=== PATIENT | female | born 2000 | race Caucasian/White ===

== ENCOUNTER 2021-05-20 21:57 | Emergency (ER) | payer BC, SELFPAY ==
--- NOTE | ~2021-05-20 | CT_ITS ---
EXAMINATION: CT abdomen pelvis w con DATE: 05/21/2021 00:57 INDICATION: Right-sided abdominal pain TECHNIQUE: Computed tomography (CT) of the abdomen and pelvis was performed with 100 cc Omnipaque 350 intravenous contrast. The dose-length product was 442.65 mGy-cm. Automated exposure control and iter ative reconstruction technique were employed. COMPARISON: None. FINDINGS: Lung bases are unremarkable. No significant pleural or pericardial effusion. Heart size nor mal. No significant vascular abnormality. No lymphadenopathy. No free air or free fluid. There is sub tle heterogeneous enhancement of the kidneys. Cannot exclude pyelonephritis. No hydronephrosis. Gallb ladder is present. The liver, spleen, pancreas, adrenal glands are unremarkable. There is a 2.8 x 2 cm left adnexal cyst , likely ovarian. No acute osseous abnormality. IMPRESSION: 1. Subtle heterogeneous enhancement of the kidneys. This may represent normal variant, although pyelo nephritis is not excluded. Clinically correlate. 2: Left adnexal cyst measuring 2.8 x 2 cm, likely ovarian. Consider correlation with ultrasound. Reviewed, dictated and finalized at location B. [employer] IMPRESSION: 1. Subtle heterogeneous enhancement of the kidneys. This may represent normal v ariant, although pyelonephritis is not excluded. Clinically correlate. 2: Left adnexal cyst measuring 2.8 x 2 cm, likely ovarian. Consider correlation with ultrasound.
[2021-05-20 22:05] VITALS: BP 131/83; PULSE 90; RESP 20; TEMP 37; O2SAT 99
[2021-05-20] MEDS: SODIUM CHLORIDE 0.9% IV 1,000 ML 999 ML IV CONT (23:55)
[2021-05-20] MEDS: MORPHINE SULFATE (*CRX) 4 MG/ML INJ IV PUSH (23:56)
[2021-05-20] MEDS: ONDANSETRON INJ 4 MG/2 ML VIAL IV PUSH (23:56)
[2021-05-21 00:07] LABS: Basophils Absolute Auto 0.1 K/mm3 (0.0-0.1); Basophils Percent Auto 0.8 % (0.2-1.2); Eosinophils Absolute Auto 0.1 K/mm3 (0-0.3); Eosinophils Percent Auto 0.9 % (0-4.4); Hematocrit 37.4 % (37.0-47.0); Hemoglobin 12.7 g/dL (12.0-15.0); Immature Granulocyte Absolute 0.05 K/mm3 (0.00-0.031); Immature Granulocyte Percent A 0.5 % (0-0.5); Lymphocytes Percent Auto 19.5 % (18.3-44.2); Mean Corpuscular Hemoglobin 28.8 pg (26-34); Mean Corpuscular Volume 84.8 fl (80-100); Mean Platelet Volume 10.1 fl (7.4-10.4); Monocytes Absolute Auto 0.7 K/mm3 (0.1-0.6); Monocytes Percent Auto 7.3 % (2.6-8.5); Neutrophils Absolute Auto 6.5 K/mm3 (1.3-6.7); Platelet Count Result 333 k/mm3 (150-375); Red Blood Count 4.41 M/mm3 (4.2-5.4); Red Cell Distribution Width 13.7 % (11.5-14.5); White Blood Count 9.2 K/mm3 (4.5-10.0)
--- NOTE | 2021-05-21 00:19 | ED.GENADULT ---
HPI - General Adult General Chief complaint: Abdominal Pain Stated complaint: Right abd pain Time Seen by Provider: 05/20/21 23:23 History of Present Illness HPI narrative: Patient 20-year-old female who presents to the emergency department with chief complaint of right-sided abdominal pain. Patient states that it is both in the right upper quadrant and right lower quadrant the patient states the pain is not improved by anything reports is worsened by movement and palpation patient reports she had some nausea with this and denies fever. The patient denies diarrhea reports that she has been continually having some light bleeding since she started oral contraceptives. Patient denies surgical history of the abdomen Related Data Allergies Allergy/AdvReac Type Severity Reaction Status Date / Time Penicillins Allergy Rash Verified 05/20/21 22:09 Review of Systems Review of Systems: A 10 system review of systems was completed on the patient and is negative except for what is stated in the HPI. Nursing and ancillary documentation was reviewed. Exam Narrative: GENERAL: Well-appearing, well-nourished, and in no acute distress. HEAD: Normocephalic, atraumatic. EYES: PERRLA and EOMI. ENT: Nares clear, no rhinorrhea or epistaxis. Mucous membranes moist. NECK: Supple. CHEST: Clear to auscultation. No respiratory distress. HEART: Regular rate and rhythm. No murmur heard. Normal peripheral pulses. ABDOMEN: Soft, tenderness to palpation the right upper quadrant and right lower quadrant, nondistended, normal active bowel sounds. EXTREMITIES: Normal range of motion. No edema. SKIN: Warm, dry, no rash. NEURO: No focal deficits. Alert and oriented x3. PSYCH: Normal mood and affect. Course Vital Signs Vital signs: Vital Signs Temperature 37.0 C 05/20/21 22:05 Pulse Rate 90 05/20/21 22:05 Respiratory Rate 20 05/20/21 22:05 Blood Pressure 131/83 05/20/21 22:05 Pulse Oximetry 99 05/20/21 22:05 Temperature 37.0 C 05/20/21 22:05 Pulse Rate 70 05/21/21 01:22 Respiratory Rate 18 05/21/21 01:22 Blood Pressure 126/77 05/21/21 01:22 Pulse Oximetry 98 05/21/21 01:22 Medical Decision Making Vital Signs Vital Signs: Vital Signs Temperature 37.0 C 05/20/21 22:05 Pulse Rate 90 01/23/22 22:05 Respiratory Rate 20 05/20/21 22:05 Blood Pressure 131/83 05/20/21 22:05 Pulse Oximetry 99 05/20/21 22:05 Temperature 37.0 C 05/20/21 22:05 Pulse Rate 70 05/21/21 01:22 Respiratory Rate 18 05/21/21 01:22 Blood Pressure 126/77 05/21/21 01:22 Pulse Oximetry 98 05/21/21 01:22 Lab Data Result diagrams: 05/20/21 23:45 05/20/21 23:45 Labs: Lab Results 05/20/21 05/20/21 05/20/21 Range/Units 23:44 23:45 23:45 WBC 9.2 (4.5-10.0) K/mm3 RBC 4.41 (4.2-5.4) M/mm3 Hgb 12.7 (12.0-15.0) g/dL Hct 37.4 (37.0-47.0) % MCV 84.8 (80-100) fl MCH 28.8 (26-34) pg MCHC 34.0 (32-36) g/dl RDW 13.7 (11.5-14.5) % Plt Count 333 (150-375) k/mm3 MPV 10.1 (7.4-10.4) fl Immature Gran % (Auto) 0.5 (0-0.5) % Neut % (Auto) 71.0 (45.5-73.1) % Lymph % (Auto) 19.5 (18.3-44.2) % [place] % (Auto) 7.3 (2.6-8.5) % Eos % (Auto) 0.9 (0-4.4) % Baso % (Auto) 0.8 (0.2-1.2) % Lymph # (Auto) 1.80 (0.9-3.2) K/mm3 [place] # (Auto) 0.7 H (0.1-0.6) K/mm3 Eos # (Auto) 0.1 (0-0.3) K/mm3 Baso # (Auto) 0.1 (0.0-0.1) K/mm3 Abs Immat Gran (auto) 0.05 H (0.00-0.031) K/mm3 Absolute Neuts (auto) 6.5 (1.3-6.7) K/mm3 Absolute Nucleated RBC 0.0 (0.0-0.012) K/mm3 Nucleated RBC % 0.0 (0.0-0.2) % Sodium 137 (137-145) mmol/L Potassium 3.8 (3.4-5.0) mmol/L Chloride 102 (98-107) mmol/L Carbon Dioxide 25 (22-30) mmol/L Anion Gap 10 (8-16) mmol/L BUN 14 (7-17) mg/dL Creatinine 0.80 (0.7-1.0) mg/dL Estim Creat Clear Calc 102 ml/min Estimated GFR > 60 (
[2021-05-21 00:26] LABS: Alanine Aminotransferase 20 U/L (4-35); Albumin Level 4.5 g/dL (3.5-5.1); Alkaline Phosphatase 38 U/L (38-126); Anion Gap 10 mmol/L (8-16); Aspartate Amino Transferase 25 U/L (14-36); Bilirubin,Total 0.4 mg/dL (0.2-1.3); Blood Urea Nitrogen 14 mg/dL (7-17); Calcium 9.4 mg/dL (8.4-10.2); Carbon Dioxide 25 mmol/L (22-30); Chloride 102 mmol/L (98-107); Estimated CRCL calculation 102 ml/min; Estimated Glomerular Filt Rate > 60; Glucose 86 mg/dL (65-110); Lipase 53 U/L (23-300); Potassium 3.8 mmol/L (3.4-5.0); Sodium 137 mmol/L (137-145)
[2021-05-21 00:26] LABS: Add Urine Microscopic? YES; Appearance Urine Clear (Clear); Bacteria Urine Trace /hpf; Bilirubin Urine Negative (Negative); Blood Urine 2+ (Negative); Color Urine Colorless (Yellow); Glucose Urine UA Negative (Negative); Ketones Urine Negative (Negative); Leukocyte Esterase Ur Negative LEU/UL (Negative); Nitrate Urine Negative (Negative); Protein Urine Negative (Negative); RBC Urine 0-2 /hpf (0-2); Squamous Epithelial Cell Urine Occasional /hpf (Few); Urobilinogen Urine Negative mg/dL (<2.0); WBC Urine 0-3 /hpf
[2021-05-21 00:28] LABS: Specific Grav Ur 1.004 (1.001-1.035)
[2021-05-21 01:22] VITALS: BP 126/77; PULSE 70; RESP 18; O2SAT 98
[2021-05-21 02:26] VITALS: BP 111/70; PULSE 55; RESP 18; O2SAT 99
== END 2021-05-21 02:27 | disposition home or self-care (01) ==
PROVIDERS: Emergency Provider Emergency Medicine; PCP Emergency Medicine
DX: R10.84 Generalized abdominal pain (principal); N94.89 Other specified conditions associated with female genital organs and menstrual cycle
CPT/HCPCS: 36415; 74177; 80053; 81001; 81025; 83690; 85025; 96361; 96374; 96375; 99284; J2270; J2405; J7030; Q9967

== ENCOUNTER 2021-11-16 14:55 | Observation (INO) | payer BC, SELFPAY ==
--- NOTE | ~2021-11-16 | CT_ITS ---
EXAMINATION: CT BRAIN W/O DATE: 11/16/2021 15:49 INDICATION: Abnormal shaking. TECHNIQUE: Computed tomography (CT) of the head was performed without intravenous contrast. The dose- length product was 529.67 mGy-cm. Automated exposure control and iterative reconstruction technique were employed. COMPARISON: No prior studies for comparison. FINDINGS: Normal brain parenchymal volume for age. Normal mendoza-white differentiation. No acute intrac ranial hemorrhage, infarction, mass or mass effect. No ventriculomegaly or midline shift. Midline sagittal images demonstrate a normal corpus callosum, c raniovertebral junction and sella turcica. Basilar cisterns are patent. Paranasal sinuses and mastoids are pneumatized. No depressed skull fractures. IMPRESSION: 1. No acute intracranial abnormality. Reviewed, dictated and finalized at location A.
--- NOTE | ~2021-11-16 | XR_ITS ---
XR chest 1V portable DATE: 11/16/2021 15:47 INDICATION: Midsternal chest pain. Dizziness. Covid-positive. TECHNIQUE: Portable upright AP chest on 11/16/2021 at 1543 hours COMPARISON: None FINDINGS: Normal heart size. No hilar or mediastinal enlargement. No pulmonary infiltrate or consolid ation, pleural effusion or pulmonary vascular congestion or pneumothorax. IMPRESSION: Negative Reviewed, dictated and finalized at location B. IMPRESSION: Negative
[2021-11-16 14:59] VITALS: BP 128/54; PULSE 81; RESP 16; TEMP 36.1; O2SAT 99
--- NOTE | 2021-11-16 15:08 | ECG_ITS ---
Measurements Intervals [place] Rate: 57 P: 50 MA: 147 QRS: 69 QRSD: 94 T: 59 QT: 412 QTc: 403 Interpretive Statements SINUS BRADYCARDIA BASELINE ARTIFACT- III, V4-V6 BORDERLINE ECG Electronically Signed On 11-16-2021 16:49:29 CDT by Raji Morales D.O.
[2021-11-16 16:05] LABS: Alveolar/Arterial O2 Gradient 5.9 mmHg; Base Excess ABG 0.2 mEq/l (+/-2.0); Carboxyhemoglobin 0.1 % THb (0-2.0); Fractional Inspired Oxygen 21 %; HCO3 ABG 22.8 mEq/l (22.0-26.0); Methemoglobin ABG 0.1 %THb (0-1.5); Oxygen Saturation ABG 98.2 % (95.0-100.0); Oxyhemoglobin 97.5 % THb (90.0-100.0); PCO2 ABG 31.5 mmHg (35.0-45.0); PO2 ABG 106.1 mmHg (80.0-100.0); PO2 FiO2 Ratio Arterial Blood 5.05 %; Reduced Hemoglobin 2.3 %THb (0-5.0); Total Hemoglobin 14.5 g/dL (12.0-18.0); pH ABG 7.478 (7.350-7.450)
[2021-11-16 16:06] LABS: Device ROOM AIR; Modified Allen's Test Pass; Site Drawn LEFT RADIAL
--- NOTE | 2021-11-16 16:15 | ED.GENADULT ---
HPI - General Adult General Chief complaint: Dizziness Stated complaint: covid/n/dizzy Time Seen by Provider: 11/16/21 15:19 Source: patient and RN notes reviewed Mode of arrival: ambulatory Limitations: no limitations History of Present Illness HPI narrative: This is a 21 year old female who presents for evaluation of dizziness. Patient states she developed symptoms of covid 11/11/21 . She reports having cough, congestion, body aches and fatigue. She states she was feeling better and then she developed dizziness. She was at the store getting an at home covid test, and she started having shaking all over. She reports she does not feel right and she has dizziness. She also reported having numbness all over. She denies chest pain, sob, headache. She denies taking any medications or any recent drug use. Related Data Allergies Allergy/AdvReac Type Severity Reaction Status Date / Time Penicillins Allergy Rash Verified 11/16/21 15:09 Review of Systems Review of Systems: All systems reviewed & are unremarkable except as noted in HPI and below Constitutional: Constitutional: Reports fatigue and Denies fever(s) Eyes: Eyes: Denies blurry vision ENT: Reports nasal congestion and Denies sinus pressure Cardiovascular: Cardiovascular: Denies chest pain, Denies rapid heart rate, Denies leg edema and Denies dyspnea Respiratory: Respiratory: Reports cough, Denies hemoptysis and Denies dyspnea Gastrointestinal: Gastrointestinal: Denies abdominal pain and Denies melena Musculoskeletal: Musculoskeletal: Reports numbness Neurologic: Denies Abnormal speech present, Denies focal weakness, Reports numbness and Reports weakness Endocrine: Endocrine: Denies fatigue PMFSH Past Medical History Medical History (Updated 11/16/21 @ 20:08 by Lori Waters MD) Patient denies medical problems Surgical History Surgical History (Updated 11/16/21 @ 18:22 by Lori Waters MD) No pertinent past surgical history Social History Social History (Updated 11/16/21 @ 18:22 by Lori Waters MD) Smoking status: Never smoker Exam Narrative: GENERAL: well-nourished, and in no acute distress. HEAD: Normocephalic, atraumatic EYES: PERRLA and EOMI, conjunctiva clear without discharge EARS: TM's clear bilaterally without erythema or dullness NOSE: Nares clear, no rhinorrhea or epistaxis THROAT:Mucous membranes moist, Oropharynx normal without erythema, exudate, peritonsillar swelling or fluctuance NECK: Supple, without lymphadenopathy or mass RESPIRATORY: No respiratory distress, Airway patent, Respirations non-labored, Clear to auscultation without rales, rhonchi or wheeze HEART: Regular rate and rhythm. No murmur heard. Normal peripheral pulses. ABDOMEN: Soft, nontender, nondistended, normal active bowel sounds. No masses. No rebound or guarding, No organomegaly. EXTREMITIES: No edema, normal strength with full range of motion. SKIN: Warm, dry, normal color without rash NEURO: Alert and oriented x3. CN 2-12 grossly intact. No focal deficits. abnormal tremors to bilateral arms. PSYCH: Normal mood and affect. Neuro: General: patient oriented x3, moves all extremities, no focal motor deficits and CN's II-XI intact bilaterally Cranial nerves: Yes Nystagmus not present Speech: normal speech Motor exam (neuro): 5/5 motor strength present throughout and Motor abnormalites present myoclonus Sensory Exam: normal sensation Course Reevaluation(s) Reevaluation #1: I walked patient down to doll. She is able to walk but has abnormal jerking to her arms and legs still. I spoke with Dr. Osborne of radiologist. He recommends observing in hospital. Abbie accepts to hospitalist service. Date: 11/16/21 Time: 18:22 Vital Signs Vital signs: Vital Signs Temperature 97.0 F L 11/16/21 14:59 Pulse Rate 81 11/16/21 14:59 Respiratory Rate 16 11/16/21 14:59 Blood Pressure 128/54 L 11/16/21 14:59 Pulse Oximetry 99 11/16
[2021-11-16 16:22] VITALS: BP 120/63; PULSE 69; RESP 12; O2SAT 97
[2021-11-16] MEDS: SODIUM CHLORIDE 0.9% IV 1,000 ML 999 ML IV CONT (16:23)
[2021-11-16] MEDS: LORazepam INJ (*CRX) 2 MG/ML VIAL 1 MG IV PUSH (16:24)
[2021-11-16 16:39] LABS: Basophils Percent Auto 0.4 % (0.2-1.2); Eosinophils Percent Auto 0.8 % (0-4.4); Hematocrit 40.4 % (37.0-47.0); Hemoglobin 13.7 g/dL (12.0-15.0); Immature Granulocyte Absolute 0.01 K/mm3 (0.00-0.031); Immature Granulocyte Percent A 0.2 % (0-0.5); Lymphocytes Absolute Auto 1.36 K/mm3 (0.9-3.2); Mean Corpuscular HGB Conc 33.9 g/dl (32-36); Mean Corpuscular Hemoglobin 28.5 pg (26-34); Mean Platelet Volume 10.4 fl (7.4-10.4); Monocytes Absolute Auto 0.6 K/mm3 (0.1-0.6); Monocytes Percent Auto 10.9 % (2.6-8.5); Neutrophils Absolute Auto 3.1 K/mm3 (1.3-6.7); Neutrophils Percent Auto 60.7 % (45.5-73.1); Platelet Count Result 259 k/mm3 (150-375); Red Blood Count 4.81 M/mm3 (4.2-5.4); Red Cell Distribution Width 12.8 % (11.5-14.5)
[2021-11-16 16:42] LABS: Appearance Urine Clear (Clear); Bilirubin Urine Negative (Negative); Blood Urine 3+ (Negative); Color Urine Yellow (Yellow); Glucose Urine UA Negative (Negative); Ketones Urine Negative (Negative); Leukocyte Esterase Ur Negative LEU/UL (Negative); Nitrate Urine Negative (Negative); Protein Urine Negative (Negative); Specific Grav Ur 1.015 (1.001-1.035); Urobilinogen Urine 0.2 mg/dL (<2.0); pH Urine 8.5 (5.0-9.0)
[2021-11-16 16:49] LABS: Ethanol < 10 mg/dL (<10)
[2021-11-16 16:50] LABS: INR 1.1; Prothrombin Time 13.6 Seconds (11.1-14.7)
[2021-11-16 16:51] LABS: Alanine Aminotransferase 18 U/L (6-35); Albumin Level 4.5 g/dL (3.5-5.1); Alkaline Phosphatase 48 U/L (38-126); Anion Gap 7 mmol/L (8-16); Aspartate Amino Transferase 23 U/L (14-36); Bilirubin,Total 0.2 mg/dL (0.2-1.3); Blood Urea Nitrogen 9 mg/dL (7-17); Calcium 9.3 mg/dL (8.4-10.2); Carbon Dioxide 27 mmol/L (22-30); Chloride 105 mmol/L (98-107); Estimated CRCL calculation 132 ml/min; Estimated Glomerular Filt Rate > 60; Glucose 89 mg/dL (65-110); Magnesium 2.1 mg/dL (1.6-2.3); Partial Thromboplastin Time 30.3 SECONDS (22.3-36.8); Potassium 3.8 mmol/L (3.4-5.0); Sodium 139 mmol/L (137-145)
[2021-11-16 16:55] LABS: Bacteria Urine Trace /hpf; Mucus Urine Rare /lpf; RBC Urine 0-2 /hpf (0-2); Squamous Epithelial Cell Urine Moderate /hpf (Few); WBC Urine 0-3 /hpf
[2021-11-16 17:00] LABS: Add Urine Microscopic? YES
[2021-11-16 17:02] LABS: Amphetamine Screen Urine Negative (Negative); Barbiturate Screen Urine Negative (Negative); Benzodiazepines Screen Urine Negative (Negative); Cannabinoid Screen Urine Positive (Negative); Cocaine Screen Urine Negative (Negative); Methadone Screen Urine Negative (Negative); Opiate Screen Urine Negative (Negative); Phencyclidine Screen Urine Negative (Negative)
[2021-11-16 19:53] LABS: SARS-CoV-2 RNA PCR Positive
--- NOTE | 2021-11-16 20:19 | PM.IMHP ---
H&P: HPI History of Present Illness Date/Time: 11/16/21 20:19 Chief Complaint: Dizziness Narrative: This pleasant, 21 year old female patient with no PMH but is currently COVID +, presents to the ER today independently ambulatory with complaints of being dizzy. She reports that she started developing symptoms of COVID on 11/11/21 of Cough that is dry, congestion, body aches and fatigue. She tested with a home test and it was positive for COVID. She stayed at home and a few days later became dizzy. She went to the store today to get another test to see if she was still positive, and she was, but while in the store she became increasingly dizzy, chilled and flushed. She went out to sit in the car and cool off in the Air conditioning when she started developing a tremor of her extremities. She states that she then had continued dizziness so she came to the ER. She is currently on her menstrual cycle that just started today. She has no Dyspnea and no CP, but she feels very fatigued and tired. Workup in the ER was unremarkable with respect to labs, CXR and CT of brain. There was an appreciable tremor noted in her arms for the ER physician prompting Neurology consult to Dr. Osborne. He wants pt. to be observed overnight. At the time of my assessment there are no signs of any tremors noted. She has no other complaints at this time and she has no pain or dyspnea. She is fatigued. Her COVID test is positive. She is admitted to the hospitalist service [facility] for observation and for further assessment and monitoring. Review of Systems Review of Systems: All systems reviewed & are unremarkable except as noted in HPI and below PMFSH Past Medical History Medical History Patient denies medical problems Surgical History Surgical History No pertinent past surgical history Social History Social History Smoking status: Never smoker Meds Home Medications and Allergies Home Medications Medication Instructions Recorded Confirmed Type dicyclomine 20 mg tablet 20 mg PO QID PRN abdominal 05/21/21 Rx discomfort #20 tabs ondansetron 4 mg disintegrating 4 mg PO Q8H PRN nausea and 05/21/21 Rx tablet vomiting #10 tabs Allergies Allergy/AdvReac Type Severity Reaction Status Date / Time Penicillins Allergy Rash Verified 11/16/21 15:09 Vital Signs Vital Signs - 24 hr 11/16/21 14:59 11/16/21 16:22 Temperature 97.0 F L Pulse Rate 81 69 Respiratory Rate 16 12 Blood Pressure 128/54 L 120/63 Pulse Oximetry 99 97 Oxygen Delivery Room Air Exam Const: General: comfortable and no acute distress HENMT: General nose exam: Normal nares present Mouth: Yes moist mucous membranes Eyes: General: appearance normal, both eyes and all related structures Sclera: sclerae normal Pupils: Equal, round and reactive pupils present Neck: Neck: supple and no JVD Chest: Other: Not tender to palpation. Resp: Effort & Inspection: normal respiratory effort Auscultation: clear to auscultation bilaterally Cardio: Rate: regular rate Rhythm: regular rhythm Heart sounds: no gallops, no murmurs and no rubs GI: Inspection: non-distended GI Palp: Yes Soft to palpation and No Tenderness to palpation present (GI) Auscultation: normal bowel sounds Skin: General skin exam: normal color and no rashes or lesions noted Lesions: no lesions noted Rashes: no rashes noted Wounds: no wounds Neuro: General: gait normal Speech: normal speech Motor exam (neuro): 5/5 motor strength present throughout and Normal motor muscle tone present throughout Sensory Exam: normal sensation Extrem: Other: Freely and equally MAEW. Psych: Mental Status: mental status grossly normal Affect: normal affect H&P: Results Labs Labs: Short CBC 11/16/21 Range/Units 16:
[2021-11-16 20:32] VITALS: BP 117/73; PULSE 65; RESP 18; O2SAT 99
[2021-11-16] MEDS: SODIUM CHLORIDE 0.9% IV 1,000 ML 100 ML IV CONT (21:12)
[2021-11-16 21:21] VITALS: BP 121/76; PULSE 71; RESP 16; TEMP 36.6; O2SAT 99
[2021-11-16 21:36] VITALS: PULSE 68
--- NOTE | 2021-11-16 21:46 | PC.NURSE ---
This patient, Denise Corbett, was admitted to Medical Room 341-01. Patient/family oriented to hospital policies and general routines including ID bracelet, bed and alarms, visiting hours, pain management, procedures, bathroom and other care routines, personal items, smoking policy, room service/diet, and visiting hours. Information on how to activate the Rapid Response Team has been discussed. Patient/Family are encouraged to report perceived risks to care and to ask questions if they do not understand what they are told or what they should do. Explained Isolation for being covid positive. Heart monitor also explained.
[2021-11-17] VITALS (10 sets, daily range): BP systolic 111–131; BP diastolic 63–68; PULSE 56–80; RESP 14–18; TEMP 36.4–37.1; O2SAT 97–100
[2021-11-17 06:00] LABS: Basophils Percent Auto 0.5 % (0.2-1.2); Eosinophils Absolute Auto 0.1 K/mm3 (0-0.3); Eosinophils Percent Auto 1.9 % (0-4.4); Hematocrit 37.9 % (37.0-47.0); Hemoglobin 12.5 g/dL (12.0-15.0); Immature Granulocyte Absolute 0.01 K/mm3 (0.00-0.031); Immature Granulocyte Percent A 0.2 % (0-0.5); Lymphocytes Absolute Auto 2.15 K/mm3 (0.9-3.2); Mean Corpuscular Hemoglobin 28.5 pg (26-34); Mean Corpuscular Volume 86.3 fl (80-100); Mean Platelet Volume 10.4 fl (7.4-10.4); Monocytes Absolute Auto 0.5 K/mm3 (0.1-0.6); Monocytes Percent Auto 12.6 % (2.6-8.5); Neutrophils Absolute Auto 1.5 K/mm3 (1.3-6.7); Neutrophils Percent Auto 34.8 % (45.5-73.1); Platelet Count Result 228 k/mm3 (150-375); Red Blood Count 4.39 M/mm3 (4.2-5.4); Red Cell Distribution Width 12.7 % (11.5-14.5); White Blood Count 4.3 K/mm3 (4.5-10.0)
[2021-11-17 06:20] LABS: Alanine Aminotransferase 16 U/L (6-35); Albumin Level 3.7 g/dL (3.5-5.1); Alkaline Phosphatase 42 U/L (38-126); Anion Gap 3 mmol/L (8-16); Aspartate Amino Transferase 22 U/L (14-36); Bilirubin,Total 0.3 mg/dL (0.2-1.3); Blood Urea Nitrogen 7 mg/dL (7-17); Calcium 8.7 mg/dL (8.4-10.2); Carbon Dioxide 27 mmol/L (22-30); Chloride 110 mmol/L (98-107); Estimated CRCL calculation 132 ml/min; Estimated Glomerular Filt Rate > 60; Glucose 90 mg/dL (65-110); Potassium 4.4 mmol/L (3.4-5.0); Sodium 140 mmol/L (137-145)
[2021-11-17] MEDS: SODIUM CHLORIDE 0.9% IV 1,000 ML 100 ML IV CONT ×2 (07:57→17:06)
[2021-11-17] MEDS: ACETAMINOPHEN 325 MG TABLET 650 MG PO (12:18)
[2021-11-17] MEDS: LORATADINE 10 MG TABLET PO (12:18)
[2021-11-17] MEDS: SALINE 0.65% NAS SOLN 44 ML BTL 1 SPRAY NASAL (12:19)
--- NOTE | 2021-11-17 16:34 | PM.IMPN ---
Progress Note: A&P Assessment and Plan (1) COVID-19: Code(s): U07.1 - COVID-19 Status: Acute Assessment and Plan: Symptomatic since 11/11/21, and positive test here. No supplemental oxygen needs. Hold Remdesivir and dexamethasone. Continue IVF of NS@100 mL/hour. Continue COVID19 isolation. Patient was vaccinated with 2-step series, but no booster. (2) Myoclonus: Code(s): G25.3 - Myoclonus Status: Acute Assessment and Plan: Dr. Osborne consulted and appreciate recommendations. EEG ordered and pending. (3) Weakness: Code(s): R53.1 - Weakness Status: Acute Assessment and Plan: Likely secondary to COVID19 infection. Plan CODE STATUS: FULL CODE Disposition: home when medically stable. Time Spent With Patient Time with patient: 15 - 25 minutes Subjective Date/time seen: 11/17/21 16:34 Interval history: Patient is a 21 year old female patient with no PMH and is COVID positive, she presented to the ER for evaluation of dizziness and had extremity jerking in the ED concerning for myoclonus. Patient found lying in bed. She denies tremors, unilateral extremity weakness, numbness, dizziness, or changes in speech. She denies shortness of breath, fever, or chills. Review of Systems Review of Systems: All systems reviewed & are unremarkable except as noted in HPI and below Exam Narrative: General: No acute distress.?Sitting up in bed. No oxygen. Mental Status/Psych: AAOx4. Speech clear. Neutral mood. Pleasant. Skin: Warm and dry without rashes. Normal color for ethnicity.?No open wounds. HEENT: Normocephalic. Conjunctivae are clear. Sclera is non-icteric. Pupils equal and round. Grossly normal hearing. Oral mucosa moist. Oropharynx normal. Tongue midline without trauma.? Neck: Supple. No JVD. Heart: S1 and S2 regular rate and rhythm. No murmurs, gallops, or rubs auscultated. Chest: Respirations even and unlabored. Lung sounds are clear to auscultation bilaterally without wheezes, rhonchi, or rales. Abdomen: Soft, round and non-tender to palpation.? Bowel sounds present in all 4 quadrants. No guarding or grimacing noted. Extremities:? Grossly normal ROM all extremities. No edema. Dorsalis pedis pulses +2 bilaterally. Neurological: No focal deficits. No pronator drift. No facial droop. CN 2-12 intact. Heel to stone intact. Objective Data Vital Signs Vital Signs: Vital Signs - 24 hr 11/16/21 20:32 11/16/21 21:21 11/16/21 21:36 Temperature 97.9 F Pulse Rate 65 71 68 Respiratory Rate 18 16 Blood Pressure 117/73 121/76 Pulse Oximetry 99 99 Oxygen Delivery 11/16/21 21:42 11/17/21 00:00 11/17/21 04:00 Temperature Pulse Rate 58 L 56 L Respiratory Rate Blood Pressure Pulse Oximetry Oxygen Delivery Room Air 11/17/21 06:00 11/17/21 08:19 11/17/21 08:05 Temperature 98.7 F Pulse Rate 65 80 Respiratory Rate 16 Blood Pressure 111/63 Pulse Oximetry 100 97 Oxygen Delivery Room Air 11/17/21 08:05 11/17/21 15:30 11/17/21 12:04 Temperature 97.6 F Pulse Rate 59 L 64 Respiratory Rate 14 Blood Pressure 131/68 Pulse Oximetry 100 Oxygen Delivery Room Air 11/17/21 16:04 Temperature Pulse Rate 58 L Respiratory Rate Blood Pressure Pulse Oximetry Oxygen Delivery Intake/Output Intake/Output: Intake & Output 11/14/21 11/15/21 11/16/21 11/17/21 23:59 23:59 23:59 23:59 Intake Total 1000 1480 Output Total 0 Balance 1000 1480 Meds/Results Medications: Active Medications Generic Name Dose Route Start Last Admin Trade Name Samq PRN Reason Stop Dose Admin Acetaminophen 650 mg 11/17/21 11:30 11/17/21 12:18 Acetaminophen 325 Mg Tablet PO 650 mg Q4H PRN Administration Headache Sodium Chloride 1,000 mls @ 100 mls/hr 11/16/21 20:40 11/17/21 07:57 Normal Saline Iv IV CONT 100 mls/hr .Q10H ESTRELLA Administration Loratadine 10 mg
[2021-11-18] VITALS: PULSE 56
[2021-11-18] MEDS: SODIUM CHLORIDE 0.9% IV 1,000 ML 100 ML IV CONT (03:06)
[2021-11-18 04:00] VITALS: PULSE 68
[2021-11-18 04:37] VITALS: BP 112/53; PULSE 66; RESP 16; TEMP 36.7; O2SAT 98
[2021-11-18 08:00] VITALS: PULSE 74
[2021-11-18] MEDS: LORATADINE 10 MG TABLET PO (09:27)
[2021-11-18 12:00] VITALS: PULSE 66
--- NOTE | 2021-11-18 12:22 | WPDNEURCNPN ---
Assessment and Plan Assessment and plan (1) COVID-19: Code(s): U07.1 - COVID-19 Status: Acute (2) Myoclonus: Code(s): G25.3 - Myoclonus Status: Acute Plan nonfocal neurological examination but considering the myoclonic activity in the emergency room she was hospitalized for observation there is no abnormal finding at this stage she can be discharged with instruction to follow up in about 3 months or give us call if any untoward muscle activity is noted Consult date: 11/18/21 Time Seen: 10:30 HPI: Denise Corbett is a 21 year old female admitted to [facility] through the emergency room where she presented for the complaints of dizziness since November 11, 2021 in addition to cough, congestion, generalized body aches, and fatigue reportedly she was feeling better then started becoming dizzy and while she was at the store getting at home COVID test she started having shaking all over and did not feel well also complained of numbness all over but no other associated symptomatology. She is reportedly allergic to penicillin, never a smoker, and initial examination was normal, but while she was walking in the emergency room she was noted to have jerking of her arms and legs at that time she was admitted to the hospital for further observation, her initial vital signs in the ER were stable routine labs was normal and a CT scan of the head was negative psoas the x-ray of the chest Review of Systems Review of Systems: All systems reviewed & are unremarkable except as noted in HPI and below PMFSH Past Medical History Medical History Patient denies medical problems Surgical History Surgical History No pertinent past surgical history Social History Social History Smoking packs per day: 0.5 Smoking cigarettes per day: 10.0 Smoking status: Former smoker Alcohol intake: current Drinks per week: 1 Substance use: current Substance use type: marijuana Spiritual care concerns: No Meds Home Medications and Allergies Home Medications Medication Instructions Recorded Confirmed Type No Home Medications 11/17/21 11/17/21 History Allergies Allergy/AdvReac Type Severity Reaction Status Date / Time Penicillins Allergy Rash Verified 11/16/21 15:09 Vital Signs Vital Signs - 24 hr 11/17/21 15:30 11/17/21 16:04 11/17/21 19:31 Temperature 36.4 C 36.5 C Pulse Rate 59 L 58 L 63 Respiratory Rate 14 18 Blood Pressure 131/68 118/65 Pulse Oximetry 100 98 Oxygen Delivery 11/17/21 20:00 11/17/21 20:00 11/18/21 00:00 Temperature Pulse Rate 66 66 56 L Respiratory Rate 18 Blood Pressure Pulse Oximetry 98 Oxygen Delivery Room Air 11/18/21 04:00 11/18/21 04:37 11/18/21 08:00 Temperature 36.7 C Pulse Rate 68 66 74 Respiratory Rate 16 Blood Pressure 112/53 L Pulse Oximetry 98 Oxygen Delivery 11/18/21 08:00 Temperature Pulse Rate Respiratory Rate Blood Pressure Pulse Oximetry Oxygen Delivery Room Air Exam Const: General: cooperative, comfortable and no acute distress Nutritional Appearance: average body habitus Orientation/consciousness: oriented to person, oriented to place and oriented to time Limitations: no limitations HENMT: Head: normocephalic Ears: external ears normal General nose exam: Normal external nose present Face and sinus: normal facial exam Mouth: Yes Normal oral and palatal mucosa present Eyes: General: appearance normal, both eyes and all related structures Visual Marquez: normal visual marquez by confrontation Alignment and Position: alignment normal Periorbital: periorbital findings normal Eyelids: eyelids normal Conjunctivae: conjunctivae normal Sclera: sclerae normal Cornea: corneas normal Pupils: Equal, round and reactive
--- NOTE | 2021-11-18 13:04 | PM.DS ---
DS: Admitting Diagnosis Discharge Date 11/18/2021 1304 Admitting Diagnosis COVID19 viral infection Myoclonus Generalized weakness DS: Discharge Diagnosis Discharge Diagnosis (1) COVID-19: Code(s): U07.1 - COVID-19 Status: Acute Assessment and Plan: symptoms started 11/11/21, she had positive home COVID19 test x1 and positive PCR on admission. No supplemental oxygen needs. Held Remdesivir and dexamethasone. Supportive care with IVF of NS@100 mL/hour, PRN acetaminophen and URI symptom relief provided. Placed in COVID19 isolation during hospital stay. Patient was vaccinated with 2-step series, but no booster. She was counseled to obtain COVID19 booster when feeling well. Physical exam showed cough, clear sputum, no fevers or wheezing. (2) Myoclonus: Code(s): G25.3 - Myoclonus Status: Acute Assessment and Plan: Jerking motions noted in ED to extremities with ambulation. Neurology Dr. Osborne consulted and neuro was monitored. Neuro exam was essentially normal. No further myoclonus noted x48 hours. EEG was ordered but not completed. EEGs not available during the weekend and patient stable for discharge. Outpatient EEG deferred to Neurology recommendations. Neurology follow up in 3 months. (3) Weakness: Code(s): R53.1 - Weakness Status: Acute Assessment and Plan: Likely secondary to COVID19 infection. Improved and returned to baseline with above management. DS: Summary Hospital Course Hospital Course: Denise Corbett is a 21 year old female patient with no PMH, who tested positive for COVID with home testing. She presented to the ER with complaints of being dizzy. She reported developing symptoms of COVID on 11/11/21 with dry cough, sinus congestion, body aches and fatigue. She stayed at home and a few days to manage symptoms, however, she became dizzy while at the store, as well as chilled and flushed. She went out to sit in the car and cool off in the air conditioning when she started developing a tremor of her extremities. She states that she then had continued dizziness so she came to the ER. She was noted to be on her menstrual cycle, which started the day of admission. No dyspnea or CP, but she c/o being very fatigued and tired. Workup in the ER was unremarkable with respect to labs, CXR and CT of brain. There was an appreciable tremor noted in her arms for the ER physician prompting Neurology consult to Dr. Osborne, who recommended observation overnight. Patient was placed on the medical floor. She was treated with IV hydration, nasal spray, antihistamine, and PRN acetaminophen. Neurology was consulted and recommended 3 month follow up. No further tremors appreciated during hospital stay. She was discharged home in stable condition on room air. Dizziness resolved by discharge.? Status at Discharge Cognitive/behavioral status at discharge: AAOx4 Functional status at discharge: independent ambulation Overall status at discharge: patient is progressing back to baseline Time Spent with Patient Time attestation: Total time spent providing and/or coordinating discharge services: Time spent: Less than 30 minutes Exam Narrative: General: No acute distress.?No oxygen. Mental Status/Psych: AAOx4. Speech clear. Neutral mood. Pleasant. Skin: Warm and dry without rashes. Normal color for ethnicity.?No open wounds. HEENT: Sclera is non-icteric. Pupils equal and round. EOM intact. Oral mucosa moist. Oropharynx normal. Tongue midline.? Neck: No JVD. No carotid bruit. Heart: S1 and S2 regular rate and rhythm. No murmurs, gallops, or rubs auscultated. Chest: Respirations even and unlabored. Lung sounds are clear to auscultation bilaterally without wheezes, rhonchi, or rales. Abdomen: Soft, round and non-tender to palpation.? Bowel sounds present in all 4 quadrants. No guarding or grimacing noted. Extremities:? Grossly normal ROM all extremities. No edema. Dorsalis
== END 2021-11-18 15:10 | disposition home or self-care (01) ==
LOC: ANHED 17:01 → ANH3MED 20:08
PROVIDERS: Nurse Practitioner Adult Health; Admitting Provider Student in an Organized Health Care Education/Training Program; Emergency Provider General Practice; Visit Provider Nurse Practitioner Family
DX: U07.1 COVID-19 (principal); G25.3 Myoclonus; R53.1 Weakness
CPT/HCPCS: 36415; 36600; 70450; 71045; 80053; 80307; 81001; 81025; 82375; 82805; 83050; 83735; 84443; 85025; 85610; 85730; 93005; 96361; 96374; 99285; A9270; C9803; G0378; J2060; J7030; U0003; U0005

== ENCOUNTER 2022-04-01 23:03 | Emergency (ER) | payer BC, SELFPAY ==
--- NOTE | ~2022-04-01 | CT_ITS ---
EXAMINATION: CT abdomen pelvis w con DATE: 04/02/2022 03:03 INDICATION: Left-sided abdominal pain, nausea, vomiting and diarrhea for 4 days TECHNIQUE: Computed tomography (CT) of the abdomen and pelvis was performed with 100 CC Omnipaque 350 intravenous contrast. Automated exposure control and iterative reconstruction technique were employe d. Exam dose: 533.83 mGy-cm total exam DLP. COMPARISON: 05/17/2021 CT abdomen pelvis FINDINGS: Lung bases are clear. Normal heart size. No pericardial or pleural effusion. The liver, gallbladder, bile ducts, spleen, pancreas, pancreatic duct, and adrenal glands and kidneys are unremarkable. No urinary tract calculus or hydroureteronephrosis. Normal caliber of the abdominal aorta. No intraperitoneal or retroperitoneal or pelvic mass lesion or adenopathy or ascites. No evidence of appendicitis. No bowel obstruction, bowel wall thickening, pneumatosis or intraperiton eal free air. There are some nondilated small bowel segments with air-fluid levels, possibly due to enteritis. The uterus, adnexal areas and urinary bladder are unremarkable. Included skeletal structures are unremarkable. IMPRESSION: No evidence of appendicitis Scattered small bowel air-fluid levels, without small bowel dilatation or obstruction; consider enter itis Reviewed, dictated and finalized at [facility]. Reviewed, dictated and finalized at [facility]. [employer] IMPRESSION: No evidence of appendicitis Scattered small bowel air-fluid levels, without small bowel dilatation or obstr uction; consider enteritis
[2022-04-01 23:10] VITALS: BP 141/69; PULSE 82; RESP 18; TEMP 36.7; O2SAT 99
[2022-04-01 23:27] LABS: Basophils Absolute Auto 0.1 K/mm3 (0.0-0.1); Basophils Percent Auto 0.9 % (0.2-1.2); Eosinophils Absolute Auto 0.4 K/mm3 (0-0.3); Hematocrit 39.6 % (37.0-47.0); Hemoglobin 13.3 g/dL (12.0-15.0); Immature Granulocyte Percent A 1.2 % (0-0.5); Lymphocytes Absolute Auto 2.01 K/mm3 (0.9-3.2); Lymphocytes Percent Auto 23.2 % (18.3-44.2); Mean Corpuscular HGB Conc 33.6 g/dl (32-36); Mean Corpuscular Hemoglobin 28.9 pg (26-34); Mean Corpuscular Volume 85.9 fl (80-100); Mean Platelet Volume 10.1 fl (7.4-10.4); Monocytes Absolute Auto 0.6 K/mm3 (0.1-0.6); Monocytes Percent Auto 7.4 % (2.6-8.5); Neutrophils Absolute Auto 5.5 K/mm3 (1.3-6.7); Neutrophils Percent Auto 63.3 % (45.5-73.1); Platelet Count Result 346 k/mm3 (150-375); Red Blood Count 4.61 M/mm3 (4.2-5.4); Red Cell Distribution Width 13.1 % (11.5-14.5); White Blood Count 8.7 K/mm3 (4.5-10.0)
[2022-04-01 23:42] LABS: Alanine Aminotransferase 18 U/L (6-35); Albumin Level 4.6 g/dL (3.5-5.1); Alkaline Phosphatase 49 U/L (38-126); Anion Gap 8 mmol/L (8-16); Aspartate Amino Transferase 19 U/L (14-36); Bilirubin,Total 0.3 mg/dL (0.2-1.3); Blood Urea Nitrogen 10 mg/dL (7-17); Calcium 9.1 mg/dL (8.4-10.2); Carbon Dioxide 24 mmol/L (22-30); Chloride 109 mmol/L (98-107); Estimated Glomerular Filt Rate > 60; Glucose 111 mg/dL (65-110); Lipase 70 U/L (23-300); Potassium 4.1 mmol/L (3.4-5.0); Sodium 141 mmol/L (137-145)
[2022-04-02 01:08] VITALS: BP 137/67; PULSE 58; RESP 14; O2SAT 100
[2022-04-02 01:23] LABS: Mucus Urine Rare /lpf; RBC Urine 0-2 /hpf (0-2); Squamous Epithelial Cell Urine Moderate /hpf (Few); WBC Urine 0-3 /hpf
[2022-04-02 01:43] VITALS: BP 118/58; PULSE 55; RESP 16; O2SAT 100
[2022-04-02 01:47] LABS: Appearance Urine Clear (Clear); Bilirubin Urine Negative (Negative); Blood Urine Negative (Negative); Color Urine Yellow (Yellow); Glucose Urine UA Negative (Negative); Ketones Urine Negative (Negative); Leukocyte Esterase Ur Negative LEU/UL (Negative); Nitrate Urine Negative (Negative); Protein Urine Negative (Negative); Urobilinogen Urine 0.2 mg/dL (<2.0)
[2022-04-02 01:50] LABS: Add Urine Microscopic? NO
[2022-04-02] MEDS: MORPHINE SULFATE (*CRX) 4 MG/ML INJ IV PUSH (02:31)
[2022-04-02] MEDS: ONDANSETRON INJ 4 MG/2 ML VIAL IV PUSH (02:31)
[2022-04-02] MEDS: SODIUM CHLORIDE 0.9% IV 1,000 ML 999 ML IV CONT (02:31)
--- NOTE | 2022-04-02 03:01 | ED.GENADULT ---
HPI - General Adult General Chief complaint: Nausea/Vomiting/Diarrhea Stated complaint: n/v, left side pain Time Seen by Provider: 04/02/22 02:03 History of Present Illness HPI narrative: Patient is a 21-year-old female who presents to the emergency department with chief complaint of left-sided abdominal pain. Patient reports that she started having pain this evening and also had nausea and vomiting. Patient reports recently she has had some chills and body aches as well patient reports has been tested for the flu that was negative and was given antiemetics by her primary care provider. Patient reports that the oral antiemetics have not really helped her nausea and vomiting. Related Data Allergies Allergy/AdvReac Type Severity Reaction Status Date / Time Penicillins Allergy Rash Verified 04/01/22 23:15 Review of Systems Review of Systems: A 10 system review of systems was completed on the patient and is negative except for what is stated in the HPI. Nursing and ancillary documentation was reviewed. PMFSH Past Medical History Medical History Patient denies medical problems Surgical History Surgical History No pertinent past surgical history Social History Social History Smoking packs per day: 0.5 Smoking cigarettes per day: 10.0 Smoking status: Former smoker Alcohol intake: current Drinks per week: 1 Substance use: current Substance use type: marijuana Spiritual care concerns: No Exam Narrative: GENERAL: Well-appearing, well-nourished, and in no acute distress. HEAD: Normocephalic, atraumatic. EYES: PERRLA and EOMI. ENT: Nares clear, no rhinorrhea or epistaxis. Mucous membranes moist. NECK: Supple. CHEST: Clear to auscultation. No respiratory distress. HEART: Regular rate and rhythm. No murmur heard. Normal peripheral pulses. ABDOMEN: Soft, nontender, nondistended, normal active bowel sounds. EXTREMITIES: Normal range of motion. No edema. SKIN: Warm, dry, no rash. NEURO: No focal deficits. Alert and oriented x3. PSYCH: Normal mood and affect. Course Vital Signs Vital signs: Vital Signs Temperature 36.7 C 04/01/22 23:10 Pulse Rate 82 04/01/22 23:10 Respiratory Rate 18 04/01/22 23:10 Blood Pressure 141/69 H 04/01/22 23:10 Pulse Oximetry 99 04/01/22 23:10 Temperature 36.7 C 04/01/22 23:10 Pulse Rate 55 L 04/02/22 01:43 Respiratory Rate 16 04/02/22 01:43 Blood Pressure 118/58 L 04/02/22 01:43 Pulse Oximetry 100 04/02/22 01:43 Medical Decision Making Vital Signs Vital Signs: Vital Signs Temperature 36.7 C 04/01/22 23:10 Pulse Rate 82 04/01/22 23:10 Respiratory Rate 18 04/01/22 23:10 Blood Pressure 141/69 H 04/01/22 23:10 Pulse Oximetry 99 04/01/22 23:10 Temperature 36.7 C 04/01/22 23:10 Pulse Rate 55 L 04/02/22 01:43 Respiratory Rate 16 04/02/22 01:43 Blood Pressure 118/58 L 04/02/22 01:43 Pulse Oximetry 100 04/02/22 01:43 Lab Data 04/01/22 23:19 04/01/22 23:19 Labs: Lab Results 04/01/22 04/01/22 04/02/22 Range/Units 23:19 23:19 01:13 WBC 8.7 (4.5-10.0) K/mm3 RBC 4.61 (4.2-5.4) M/mm3 Hgb 13.3 (12.0-15.0) g/dL Hct 39.6 (37.0-47.0) % MCV 85.9 (80-100) fl MCH 28.9 (26-34) pg MCHC 33.6 (32-36) g/dl RDW 13.1 (11.5-14.5) % Plt Count 346 D (150-375) k/mm3 MPV 10.1 (7.4-10.4) fl Immature Gran % (Auto) 1.2 H (0-0.5) % Neut % (Auto) 63.3 (45.5-73.1) % Lymph % (Auto) 23.2 (18.3-44.2) % [place] % (Auto) 7.4 (2.6-8.5) % Eos % (Auto) 4.0 (0-4.4) % Baso % (Auto) 0.9 (0.2-1.2) % Lymph # (Auto) 2.01 (0.9-3.2) K/mm3 [place] # (Auto) 0.6 (0.1-0.6) K/mm3 Eos # (Auto) 0.4 H (0-0.3) K/mm3 Baso # (Auto) 0.1
[2022-04-02 03:47] LABS: Influenza A QL RT-PCR Negative (Negative); Influenza B QL RT-PCR Negative (Negative); RSV RNA, RT-PCR Negative (Negative); SARS-CoV-2 RNA PCR Negative
[2022-04-02 04:28] VITALS: PULSE 54; RESP 16; O2SAT 98
== END 2022-04-02 04:29 | disposition home or self-care (01) ==
PROVIDERS: Emergency Provider Emergency Medicine; PCP Physician Assistant
DX: R10.84 Generalized abdominal pain (principal); R11.2 Nausea with vomiting, unspecified; Z20.822 Contact with and (suspected) exposure to COVID-19; Z87.891 Personal history of nicotine dependence
CPT/HCPCS: 36415; 74177; 80053; 81003; 81025; 83690; 85025; 87637; 96361; 96374; 96375; 99284; J2270; J2405; J7030; Q9967

== ENCOUNTER 2023-06-27 19:47 | Emergency (ER) | payer OTHER, BC, SELFPAY ==
--- NOTE | ~2023-06-27 | XR_ITS ---
EXAMINATION: XR chest 1V portable INDICATION: Left-sided chest pain TECHNIQUE: Portable AP chest at 2334 hours COMPARISON: 11/16/2021 FINDINGS: The lungs are free of acute opacities. No pleural effusion or pneumothorax. The cardiomedia stinal silhouette is normal. IMPRESSION: 1. No acute cardiopulmonary abnormality. Reviewed, dictated and finalized at location [facility]. S CLASSIFIER
[2023-06-27 20:35] VITALS: BP 107/63; PULSE 74; RESP 18; TEMP 36.7; O2SAT 99
[2023-06-27 22:53] VITALS: BP 136/67; PULSE 67; RESP 18; O2SAT 99
--- NOTE | 2023-06-27 23:11 | ECG_ITS ---
Measurements Intervals [place] Rate: 57 P: 12 HI: 160 QRS: 75 QRSD: 101 T: 49 QT: 417 QTc: 409 Interpretive Statements SINUS BRADYCARDIA INCOMPLETE RIGHT BUNDLE BRANCH BLOCK BORDERLINE ECG COMPARED TO ECG 11/16/2021 15:12:00 INCOMPLETE RIGHT BUNDLE-BRANCH BLOCK NOW PRESENT Electronically Signed On 06-28-2023 9:02:21 [employer] by Raji Morales D.O.
[2023-06-27 23:13] LABS: Appearance Urine Cloudy (Clear); Bacteria Urine 1+ /hpf; Bilirubin Urine Negative (Negative); Blood Urine Negative (Negative); Color Urine Yellow (Yellow); Glucose Urine UA Negative (Negative); Ketones Urine Negative (Negative); Leukocyte Esterase Ur Negative LEU/UL (Negative); Nitrate Urine Negative (Negative); Non Pathogenic Casts 0-2; Protein Urine Negative (Negative); Specific Grav Ur 1.025 (1.001-1.035); Squamous Epithelial Cell Urine Occasional /hpf (Few)
[2023-06-27] MEDS: SODIUM CHLORIDE 0.9% IV 1,000 ML 999 ML IV CONT (23:26)
[2023-06-27 23:30] LABS: Basophils Absolute Auto 0.1 K/mm3 (0.0-0.1); Basophils Percent Auto 0.9 % (0.2-1.2); Eosinophils Absolute Auto 0.2 K/mm3 (0-0.3); Hematocrit 38.9 % (37.0-47.0); Hemoglobin 12.8 g/dL (12.0-15.0); Immature Granulocyte Absolute 0.03 K/mm3 (0.00-0.031); Immature Granulocyte Percent A 0.4 % (0-0.5); Lymphocytes Absolute Auto 2.05 K/mm3 (0.9-3.2); Lymphocytes Percent Auto 29.3 % (18.3-44.2); Mean Corpuscular HGB Conc 32.9 g/dl (32-36); Mean Corpuscular Hemoglobin 28.6 pg (26-34); Mean Platelet Volume 10.3 fl (7.4-10.4); Monocytes Absolute Auto 0.7 K/mm3 (0.1-0.6); Monocytes Percent Auto 9.6 % (2.6-8.5); Neutrophils Percent Auto 56.8 % (45.5-73.1); Platelet Count Result 295 k/mm3 (150-375); Red Blood Count 4.47 M/mm3 (4.2-5.4)
[2023-06-27 23:32] LABS: Add Urine Microscopic? YES
[2023-06-27 23:39] LABS: Lactic Acid Reflex 0.7 mmol/L (0.7-2.0)
[2023-06-27 23:41] LABS: Alanine Aminotransferase 27 U/L (6-35); Albumin Level 4.5 g/dL (3.5-5.1); Alkaline Phosphatase 52 U/L (38-126); Anion Gap 5 mmol/L (8-16); Aspartate Amino Transferase 22 U/L (14-36); Bilirubin,Total 0.5 mg/dL (0.2-1.3); Blood Urea Nitrogen 14 mg/dL (7-17); Calcium 9.6 mg/dL (8.4-10.2); Carbon Dioxide 29 mmol/L (22-30); Chloride 104 mmol/L (98-107); Estimated CRCL calculation 131 ml/min; Estimated Glomerular Filt Rate > 60; Glucose 99 mg/dL (65-110); Lipase 69 U/L (23-300); Potassium 3.7 mmol/L (3.4-5.0); Sodium 138 mmol/L (137-145)
[2023-06-27 23:43] LABS: SPREG INTERNAL CONTROL Positive; Serum Qual hCG Negative
[2023-06-27 23:52] LABS: Troponin I < 0.012 ng/mL (0.000-0.034)
--- NOTE | 2023-06-28 00:04 | ED.GENADULT ---
HPI - General Adult General Chief complaint: Urogenital-Female Stated complaint: R side pain/shoulder pain, missed period (- preg) Time Seen by Provider: 06/27/23 22:38 History of Present Illness HPI narrative: Patient is 20-year-old female who presents emergency department with chief complaint of right shoulder pain left lower quadrant pain the patient states that she is about 8 days late for her period and is concerned that she is the patient states she has taken 2 home tests that have been negative so far but is concerned that they may be false negatives. Patient reports that she has also had some nausea and reports that she has had some fullness sensation in her breast. Related Data Allergies Allergy/AdvReac Type Severity Reaction Status Date / Time Penicillins Allergy Rash Verified 06/27/23 22:54 Review of Systems Review of Systems: A 10 system review of systems was completed on the patient and is negative except for what is stated in the HPI. Nursing and ancillary documentation was reviewed. [facility] Past Medical History Medical History Patient denies medical problems Surgical History Surgical History No pertinent past surgical history Social History Social History Smoking packs per day: 0.5 Smoking cigarettes per day: 10.0 Smoking status: Former smoker Alcohol intake: current Drinks per week: 1 Substance use: current Substance use type: marijuana Spiritual care concerns: No Exam Narrative: GENERAL: Well-appearing, well-nourished, and in no acute distress. HEAD: Normocephalic, atraumatic. EYES: PERRLA and EOMI. ENT: Nares clear, no rhinorrhea or epistaxis. Mucous membranes moist. NECK: Supple. CHEST: Clear to auscultation. No respiratory distress. HEART: Regular rate and rhythm. No murmur heard. Normal peripheral pulses. ABDOMEN: Soft, mild suprapubic tenderness, nondistended, normal active bowel sounds. EXTREMITIES: Normal range of motion. No edema. SKIN: Warm, dry, no rash. NEURO: No focal deficits. Alert and oriented x3. PSYCH: Normal mood and affect. Course Vital Signs Vital signs: Vital Signs Temperature 36.7 C 06/27/23 20:35 Pulse Rate 74 06/27/23 20:35 Respiratory Rate 18 06/27/23 20:35 Blood Pressure 107/63 06/27/23 20:35 Pulse Oximetry 99 06/27/23 20:35 Temperature 36.7 C 06/27/23 20:35 Pulse Rate 67 06/27/23 22:53 Respiratory Rate 18 06/27/23 22:53 Blood Pressure 136/67 06/27/23 22:53 Pulse Oximetry 99 06/27/23 22:53 Medical Decision Making MDM Narrative Medical decision making narrative: Differential diagnosis includes ACS, UTI, , Laboratory studies were obtained the patient which showed normal CBC normal CMP lipase was normal troponin was less than 0.012 urine hCG and serum hCG were both negative urinalysis showed 6-10 white blood cells in the urine 1+ bacteria EKG showed no acute ischemic changes Chest x-ray showed no focal findings Vital Signs Vital Signs: Vital Signs Temperature 36.7 C 06/27/23 20:35 Pulse Rate 74 06/27/23 20:35 Respiratory Rate 18 06/27/23 20:35 Blood Pressure 107/63 06/27/23 20:35 Pulse Oximetry 99 06/27/23 20:35 Temperature 36.7 C 06/27/23 20:35 Pulse Rate 67 06/27/23 22:53 Respiratory Rate 18 06/27/23 22:53 Blood Pressure 136/67 06/27/23 22:53 Pulse Oximetry 99 06/27/23 22:53 Lab Data 06/27/23 23:25 06/27/23 23:25 Labs: Lab Results 06/27/23 06/27/23 Range/Units 23:02 23:25 WBC 7.0 (4.5-10.0) K/mm3 RBC 4.47 (4.2-5.4) M/mm3 Hgb 12.8 (12.0-15.0) g/dL Hct 38.9 (37.0-47.0) % MCV 87.0 (80-100) fl MCH 28.6 (26-34) pg MCHC 32.9 (32-36) g/dl RDW 13.0 (11.5-14.5)
== END 2023-06-28 00:34 | disposition home or self-care (01) ==
PROVIDERS: Emergency Provider Emergency Medicine
DX: N39.0 Urinary tract infection, site not specified (principal); N91.2 Amenorrhea, unspecified; Z87.891 Personal history of nicotine dependence; R00.1 Bradycardia, unspecified; I45.10 Unspecified right bundle-branch block
CPT/HCPCS: 36415; 71045; 80053; 81001; 81025; 83605; 83690; 84484; 84703; 85025; 87086; 93005; 96360; 99284; J7030

== ENCOUNTER 2023-08-13 11:11 | Emergency (ER) | payer OTHER, BC, SELFPAY ==
--- NOTE | ~2023-08-13 | CT_ITS ---
EXAMINATION: CT abdomen pelvis w con DATE: 08/13/2023 12:45 INDICATION: right flank pain/right abdomen pain r/o appy/pylo TECHNIQUE: Computed tomography (CT) of the abdomen and pelvis was performed with 100 mL Omnipaque-350 intravenous contrast. Automated exposure control and iterative reconstruction technique were employe d. The dose-length product was 618.84 mGy-cm. COMPARISON: 10/01/2022. FINDINGS: Lower thorax: Unremarkable Liver: Normal. Biliary/Gallbladder: Gallbladder is normal. No bile duct dilation. Pancreas: No mass or duct dilation. Spleen: Normal. Adrenals:No mass. Kidneys: No suspicious mass, obstructing stone, or hydronephrosis. GI tract: No small or large bowel dilation. Normal appendix. Mesentery/Peritoneum: No ascites, mass, or free air. Retroperitoneum: No mass. Pelvis: Pelvic organs are within normal limits. Soft Tissues: Soft tissues and body wall unremarkable. Bones: No acute osseous finding. IMPRESSION: No acute abdominopelvic process detected. Reviewed, dictated and finalized at location [facility].
--- NOTE | 2023-08-13 11:25 | ED.FEMALEGU ---
HPI - Female Genitourinary General Chief complaint: Urogenital-Female Stated complaint: ?urinary sx Time Seen by Provider: 08/13/23 11:13 Source: patient Mode of arrival: ambulatory Limitations: no limitations History of Present Illness HPI Narrative: Denise is a 22-year-old female patient presenting to the emergency room today with complaints of right-sided flank pain radiating into her right abdomen. States she was seen at urgent care and given antibiotics for a urinary tract infection but the culture did not come back positive so they told her to discontinue her antibiotics. Denies any fever or chills. States she is nauseous. Rates her pain currently a 7 at 10. Related Data Allergies Allergy/AdvReac Type Severity Reaction Status Date / Time Penicillins Allergy Rash Verified 06/27/23 22:54 Review of Systems Review of Systems: Pertinent positives per HPI. Patient denies any fever, chills, rash, headache, visual changes, dizziness, cough, runny nose, sore throat, shortness of breath, chest pain, palpitations,vomiting, diarrhea, constipation. PMFSH Past Medical History Medical History Patient denies medical problems Surgical History Surgical History No pertinent past surgical history Social History Social History Smoking packs per day: 0.5 Smoking cigarettes per day: 10.0 Smoking status: Former smoker Alcohol intake: current Drinks per week: 1 Substance use: current Substance use type: marijuana Spiritual care concerns: No Comments At the time of my signature, I reviewed and agree with the nursing past medical, surgical, social, and family history. There is no relevant family history pertinent to the patient complaint. Exam Narrative: General: Well-developed, well nourished, in no apparent distress Head: Normocephalic, atraumatic Eyes: Pupils equally round and reactive to light bilaterally, EOM intact, sclera and conjunctive clear, no discharge, lids normal Ears: TMs intact and clear, ear canals clear, no drainage, grossly hearing normal. Nose: Nares patent, no discharge, no inflammation, no sinus tenderness. Mouth: Oropharynx without lesions or masses, good dentition, MMM. Neck: Supple, trachea midline, no enlargement of anterior or posterior cervical nodes, no thyroid masses or goiter palpable. Cardio: Regular rate and rhythm, s1 and s2 normal, no murmur appreciated. Resp: Clear to auscultation bilaterally anteriorly and posteriorly, no rhonchi, rales, wheezing or rubs Abdomen: Soft, pliable, bowel sounds present in all quadrants, tender to palpation over the right side the abdomen, no organomegly, no CVAT tenderness. Course Course Emergency Course: Portions of this record may have been created with voice recognition software. Vital Signs Vital signs: Vital Signs Temperature 36.9 C 08/13/23 11:26 Pulse Rate 68 08/13/23 11:26 Respiratory Rate 16 08/13/23 11:26 Blood Pressure 117/58 L 08/13/23 11:26 Pulse Oximetry 98 08/13/23 11:26 Oxygen Delivery Room Air 08/13/23 11:26 Temperature 36.9 C 08/13/23 11:26 Pulse Rate 68 08/13/23 11:26 Respiratory Rate 16 08/13/23 11:26 Blood Pressure 117/58 L 08/13/23 11:26 Pulse Oximetry 98 08/13/23 11:26 Oxygen Delivery Room Air 08/13/23 11:26 Vital signs reviewed MDM - Female Genitourinary MDM Narrative Medical decision making narrative: At the time of visit patient is resting comfortably on the exam table. Patient appears to be nontoxic. Labs: CBC shows white blood cell count of 6.4, H&H of 13.3 in 39.9, platelet count 3 of 7, chemistry shows sodium a 139, potassium of 4.0, chloride 107, BUN 9, creatinine 0.7, GFR greater than 60, glucose 119, liver function test within normal limits, lipase 65, urinalysis sh
[2023-08-13 11:26] VITALS: BP 117/58; PULSE 68; RESP 16; TEMP 36.9; O2SAT 98
[2023-08-13 11:47] LABS: Basophils Absolute Auto 0.1 K/mm3 (0.0-0.1); Basophils Percent Auto 1.1 % (0.2-1.2); Eosinophils Absolute Auto 0.1 K/mm3 (0-0.3); Eosinophils Percent Auto 1.6 % (0-4.4); Hematocrit 39.9 % (37.0-47.0); Hemoglobin 13.3 g/dL (12.0-15.0); Immature Granulocyte Absolute 0.04 K/mm3 (0.00-0.031); Immature Granulocyte Percent A 0.6 % (0-0.5); Lymphocytes Absolute Auto 1.22 K/mm3 (0.9-3.2); Mean Corpuscular HGB Conc 33.3 g/dl (32-36); Mean Corpuscular Hemoglobin 28.8 pg (26-34); Mean Corpuscular Volume 86.4 fl (80-100); Mean Platelet Volume 10.6 fl (7.4-10.4); Monocytes Absolute Auto 0.6 K/mm3 (0.1-0.6); Monocytes Percent Auto 8.9 % (2.6-8.5); Neutrophils Absolute Auto 4.4 K/mm3 (1.3-6.7); Neutrophils Percent Auto 68.8 % (45.5-73.1); Platelet Count Result 307 k/mm3 (150-375); Red Blood Count 4.62 M/mm3 (4.2-5.4); Red Cell Distribution Width 12.6 % (11.5-14.5); White Blood Count 6.4 K/mm3 (4.5-10.0)
[2023-08-13 11:55] LABS: Alanine Aminotransferase 19 U/L (6-35); Albumin Level 4.6 g/dL (3.5-5.1); Alkaline Phosphatase 51 U/L (38-126); Anion Gap 10 mmol/L (4-12); Aspartate Amino Transferase 20 U/L (14-36); Bilirubin,Total 0.6 mg/dL (0.2-1.3); Blood Urea Nitrogen 9 mg/dL (7-17); Calcium 9.5 mg/dL (8.4-10.2); Carbon Dioxide 22 mmol/L (22-30); Chloride 107 mmol/L (98-107); Estimated CRCL calculation 128 ml/min; Estimated Glomerular Filt Rate > 60; Glucose 119 mg/dL (65-110); Lipase 65 U/L (23-300); Sodium 139 mmol/L (137-145)
[2023-08-13 11:58] LABS: Pregnancy On Board Control Positive; Urine Pregnancy Test Negative
[2023-08-13 12:08] LABS: Appearance Urine Clear (Clear); Bacteria Urine 2+ /hpf; Bilirubin Urine Negative (Negative); Blood Urine Negative (Negative); Color Urine Yellow (Yellow); Glucose Urine UA Negative (Negative); Ketones Urine Negative (Negative); Leukocyte Esterase Ur Trace LEU/UL (Negative); Need Manual Microscopic Reviewed; Nitrate Urine Negative (Negative); Non Pathogenic Casts 0-2; Protein Urine Negative (Negative); RBC Urine 0-2 /hpf (0-2); Squamous Epithelial Cell Urine Occasional /hpf (Few); Urobilinogen Urine 0.2 mg/dL (<2.0); WBC Urine 0-5 /hpf (0-3)
[2023-08-13 12:13] LABS: Specific Grav Ur 1.004 (1.001-1.035)
[2023-08-13 12:14] LABS: Add Urine Microscopic? YES
[2023-08-13] MEDS: KETOROLAC 30 MG/ML VIAL (*BKC) IV PUSH (12:59)
== END 2023-08-13 13:07 | disposition home or self-care (01) ==
PROVIDERS: Emergency Provider Nurse Practitioner Family
DX: R10.9 Unspecified abdominal pain (principal); Z87.891 Personal history of nicotine dependence
CPT/HCPCS: 36415; 74177; 80053; 81001; 81025; 83690; 85025; 96374; 99284; J1885; Q9967